=== PATIENT | female | born 1995 | race Caucasian/White ===

== ENCOUNTER 2019-10-04 10:49 | Emergency (ER) | payer BC, OTHER ==
--- NOTE | 2019-10-04 11:39 | UC ---
Throat Pain/Nasal Jeffrey HPI - HPI Summary HPI Summary: 24 yo female presents with sore throat. She was seen here on 09/29 for right ear crackling, sore throat, right sided swollen glands, and elevated temp of 99.9F. Dx'd with viral syndrome and advised supportive care. Pt is here today stating that her symptoms have no improved. He symptoms began around 4/5 and have been persistent since. - History of Current Complaint Stated Complaint: FEVER,HEADACHE Time Seen by Provider: 10/04/19 11:39 Hx Obtained From: Patient Hx Last Menstrual Period: 2 weeks ago Onset/Duration: Gradual Onset Severity: Moderate Pain Intensity: 5 Pain Scale Used: 0-10 Numeric - Allergies/Home Medications Allergies/Adverse Reactions: Allergies Allergy/AdvReac Type Severity Reaction Status Date / Time No Known Allergies Allergy Verified 07/07/15 12:03 Home Medications: Home Medications Physical Therapy 11/11/13 [Clinic] Norgestimate-Ethinyl Estradiol [Ortho-Cyclen 0.25-35 Mg-Mcg] 1 tab PO DAILY #3 courtney 02/16/14 [Clinic] PMH/Surg Hx/FS Hx/Imm Hx - Additional Past Medical History Additional PMH: None - Surgical History Surgical History: None - Family History Known Family History: Positive: None - Social History Lives: With Family Alcohol Use: None Substance Use Type: None Smoking Status (MU): Never Smoked Tobacco - Immunization History Vaccination Up to Date: Yes Review of Systems All Other Systems Reviewed And Are Negative: No Constitutional: Positive: Fever - subjective Skin: Positive: Negative Eyes: Positive: Negative ENT: Positive: Sore Throat Respiratory: Positive: Negative Cardiovascular: Positive: Negative Gastrointestinal: Positive: Negative Neurovascular: Positive: Negative Neurological/Mental Status: Positive: Headache Psychological: Positive: Negative Physical Exam - Summary Physical Exam Summary: GENERAL: NAD. WDWN. No pain distress. SKIN: No rashes, sores, lesions, or open wounds. HEENT: Head: AT/NC Eyes: EOM intact. Conjunctiva clear without inflammation or discharge. Ears: Hearing grossly normal. TMs intact, no bulging, erythema, or edema. Nose: Nasal mucosa pink and moist. NTTP maxillary and frontal sinus. Throat: Posterior oropharynx without exudates, erythema, or tonsillar enlargement. Uvula midline. NECK: Supple. Nontender. No lymphadenopathy. CHEST: CTAB. No r/r/w. No accessory muscle use. Breathing comfortably and in no distress. CV: RRR. Pulses intact. Cap refill <2seconds NEURO: Alert. PSYCH: Age appropriate behavior. Triage Information Reviewed: Yes Vital Signs Reviewed: Yes Discharge ED - Sign-Out/Discharge Documenting (check all that apply): Patient Departure All imaging exams completed and their final reports reviewed: No Studies - Discharge Plan Condition: Stable Disposition: HOME Referrals: No Primary Care Phys,NOPCP [Primary Care Provider] - - Billing Disposition and Condition Condition: STABLE Disposition: Home
[2019-10-04 12:38] VITALS: BP 108/65
--- NOTE | 2019-10-04 12:42 | UC ---
Throat Pain/Nasal Jeffrey HPI - HPI Summary HPI Summary: 24-year-old woman comes in with a chief complaint of fevers headache and feeling tired or about 8 days. Also having swollen lymph nodes in her neck primarily posteriorly. She's been sleeping a lot at night and then she'll sleep again during the day. Initially had a right ear pain but that's improved. Headache tends to be a little bit more pronounced on the left side of the head. Has generalized body aches. Does not have a stiff neck. She has back pain as part of her body aches. When we discussed further patient does not have midline neck or back pain. No rash. No urinary symptoms. Mild nausea no vomiting no diarrhea no abdominal pain. Has been taking Tylenol which does help with the headache and symptoms. Denies any cough chest congestion or shortness of breath. No known recent tick bites. Patient does report she has ticks in the [place] near [place] home. - History of Current Complaint Chief Complaint: UCGeneralIllness Stated Complaint: FEVER,HEADACHE Time Seen by Provider: 10/04/19 11:39 Hx Last Menstrual Period: 09/29/19 Pain Intensity: 8 - Allergies/Home Medications Allergies/Adverse Reactions: Allergies Allergy/AdvReac Type Severity Reaction Status Date / Time No Known Allergies Allergy Verified 10/04/19 11:59 Home Medications: Home Medications Acetaminophen [Mapap] 1,000 mg PO Q6HR PRN 10/04/19 [History Confirmed 10/04/19] Copper (Iud) [Paragard IUD] 1 unit INTRAUTERI ONCE 10/04/19 [History Confirmed 10/04/19] DOXYcycline CAP(*) [DOXYcycline 100MG CAP(*)] 100 mg PO BID #20 cap 10/04/19 [Rx ] PMH/Surg Hx/FS Hx/Imm Hx Previously Healthy: Yes - Surgical History Surgical History: Yes Surgery Procedure, Year, and Place: compartment syndrome surgery left leg. wisdom teeth - Family History Known Family History: Positive: Non-Contributory - Social History Alcohol Use: Daily Substance Use Type: None Smoking Status (MU): Never Smoked Tobacco - Immunization History Vaccination Up to Date: Yes Review of Systems All Other Systems Reviewed And Are Negative: Yes Constitutional: Positive: Fever, Fatigue, Other - see hpi Skin: Positive: Negative Eyes: Positive: Negative ENT: Positive: Ear Ache Respiratory: Positive: Negative Cardiovascular: Positive: Negative Gastrointestinal: Positive: Nausea Genitourinary: Positive: Negative Motor: Positive: Negative Neurovascular: Positive: Negative Musculoskeletal: Positive: Myalgia Neurological/Mental Status: Positive: Headache Psychological: Positive: Negative Is Patient Immunocompromised?: No Physical Exam Triage Information Reviewed: Yes Appearance: Well-Appearing, No Pain Distress, Well-Nourished Vital Signs: Initial Vital Signs Temp 98.1 F 10/04/19 12:37 Pulse 104 10/04/19 12:37 Resp 12 10/04/19 12:37 BP 108/65 10/04/19 12:37 Pulse Ox 97 10/04/19 12:37 Vital Signs Reviewed: Yes Eye Exam: Normal Eyes: Positive: Conjunctiva Clear ENT: Positive: Pharynx normal, TMs normal Neck: Positive: Supple, Other: - Positive right posterior lymphadenopathy Respiratory: Positive: Lungs clear, Normal breath sounds, No respiratory distress Cardiovascular: Positive: Tachycardia Musculoskeletal: Positive: Strength Intact, ROM Intact Neurological: Positive: Alert, Muscle Tone Normal Psychological: Positive: Age Appropriate Behavior Skin Exam: Normal Throat Pain/Nasal Course/Dx - Course Course Of Treatment: Patient's symptoms been going on for about 8 days. With her fatigue, having a headache and low-grade fevers and lymphadenopathy mononucleosis is likely. Discussed viral versus bacterial infections and the role of antibiotics at this will treat with an antibiotic as are getting near the 10 days and the possibility of sinusitis does exist. Patient does have a headache and body aches does not have midline neck or back pain and her neck is supple and she overall looks well making meningitis unlikely. We did discuss the signs and symptoms of meningitis. No known tick bites. Given that the patient does not complain of cough or shortness of breath it makes Covid unlikely however due to the duration of the symptoms we will go ahead and test. Patient will be and self-isolation and follow-up with [facility]. Covid, Monospot, CBC, CMP and Lyme screen are pending. Patient will continue symptomatic treatment with Tylenol and [id number] medications if helpful. Patient to get reevaluated not improved or if worsening. - Differential Dx/Diagnosis Provider Diagnosis: Fever, Fatigue, Headache Discharge ED - Sign-Out/Discharge Documenting (check all that apply): Patient Departure All imaging exams completed and their final reports reviewed: No Studies - Discharge Plan Condition: Stable Disposition: HOME Prescriptions: DOXYcycline CAP(*) [DOXYcycline 100MG CAP(*)] 100 mg PO BID #20 cap Patient Education Materials: Fever in Adults (ED), Acute Headache (ED), Fatigue (ED) Forms: COVID-19 Tested & Isolation Referrals: [facility] [Provider Group] [facility] [place] [facility] [place]Outside] Additional Instructions: PLACE YOURSELF IN HOME ISOLATION. THE [facility] DEPARTMENT WILL CONTACT YOU. CONTACT THEM TOMORROW IF YOU HAVE NOT HEARD FROM THEM. Blood tests for mononucleosis (Monospot) and CBC and CMP results are pending. FOLLOW UP WITH YOUR DOCTOR IF NOT COMPLETELY IMPROVED. GO TO THE EMERGENCY DEPARTMENT IF NOT IMPROVED OR WORSE OR ANY QUESTIONS OR CONCERNS. - Billing Disposition and Condition Condition: STABLE Disposition: Home
[2019-10-04 18:31] LABS: Albumin 3.8 g/dL (3.2-5.2); Calcium 8.7 mg/dL (8.6-10.3); Potassium 4.1 mmol/L (3.5-5.0); Total Bilirubin 0.6 mg/dL (0.2-1.0)
[2019-10-04 18:37] LABS: Albumin/Globulin Ratio 1.2 (1-3); BUN/Creatinine Ratio 9.2 (8-20); EGFR African American 137.9 (>60); Globulin 3.1 g/dL (2-4); Total Protein 6.9 g/dL (6.4-8.9)
[2019-10-04 18:56] LABS: Hematocrit 37 % (35-47); Hemoglobin 12.7 g/dL (12.0-16.0); Mean Corpuscular HGB Conc 34 g/dL (31-36); Mean Corpuscular Hemoglobin 29 pg (27-31); Mean Corpuscular Volume 84 fL (80-97); Red Cell Distribution Width 20 % (10-15); White Blood Count 3.6 10^3/uL (3.5-10.8)
[2019-10-04 18:58] LABS: Microcytosis 1+
[2019-10-04 18:59] LABS: ABS Monocytes 0.2 10^3/ul (0-0.8); ABS Neutrophils 1.3 10^3/ul (1.5-7.7); Eosinophil % 0.7 %; Lymphocyte % 56.2 %; Nucleated Red Blood Cells % 0.2
--- NOTE | 2019-10-05 08:21 | UC ---
- Progress Note Progress Note: Patient's labs show elevated liver function tests. Recommend she have labs repeated to make sure her liver function tests are not worsening. Could be in setting of a viral illness such as EBV (mono) or CMV and would recommend checking these titers as well. If she is feeling better then would recommend repeat labs in the next week which can be set up by her PCP. If she is still not feeling well then recommend she return to urgent care for repeat evaluation or follow up with her PCP today. Still waiting on COVID testing results. If planning on coming to urgent care or PCP please let either know in advance when you are planning to come and let them know you are awaiting your COVID results Course/Dx - Diagnoses Provider Diagnoses: Fever, Fatigue, Headache Discharge ED - Sign-Out/Discharge Documenting (check all that apply): Post-Discharge Follow Up All imaging exams completed and their final reports reviewed: No Studies - Discharge Plan Condition: Stable Disposition: HOME Prescriptions: DOXYcycline CAP(*) [DOXYcycline 100MG CAP(*)] 100 mg PO BID #20 cap Patient Education Materials: Fever in Adults (ED), Acute Headache (ED), Fatigue (ED) Forms: COVID-19 Tested & Isolation Referrals: [facility] [Provider Group] [facility] [place] [facility] [Outside] Additional Instructions: PLACE YOURSELF IN HOME ISOLATION. THE [facility] DEPARTMENT WILL CONTACT YOU. CONTACT THEM TOMORROW IF YOU HAVE NOT HEARD FROM THEM. Blood tests for mononucleosis (Monospot) and CBC and CMP results are pending. FOLLOW UP WITH YOUR DOCTOR IF NOT COMPLETELY IMPROVED. GO TO THE EMERGENCY DEPARTMENT IF NOT IMPROVED OR WORSE OR ANY QUESTIONS OR CONCERNS. - Billing Disposition and Condition Condition: STABLE Disposition: Home
[2019-10-06 12:33] LABS: EBV Capsid Ag IgG Ab Positive (Negative); EBV Capsid Ag IgM Ab Positive (Negative); Epstein-Barr Nuclear Antigen Negative (Negative)
--- NOTE | 2019-10-06 13:46 | UC ---
- Progress Note Progress Note: patient notified re EB titers advised of need to f/u re LFTs DEVIN Course/Dx - Diagnoses Provider Diagnoses: Fever, Fatigue, Headache Discharge ED - Sign-Out/Discharge Documenting (check all that apply): Post-Discharge Follow Up All imaging exams completed and their final reports reviewed: No Studies - Discharge Plan Condition: Stable Disposition: HOME Prescriptions: DOXYcycline CAP(*) [DOXYcycline 100MG CAP(*)] 100 mg PO BID #20 cap Patient Education Materials: Fever in Adults (ED), Acute Headache (ED), Fatigue (ED) Forms: COVID-19 Tested & Isolation Referrals: [facility] [Provider Group] [facility] [place] [facility] [Outside] Additional Instructions: PLACE YOURSELF IN HOME ISOLATION. THE [facility] WILL CONTACT YOU. CONTACT THEM TOMORROW IF YOU HAVE NOT HEARD FROM THEM. Blood tests for mononucleosis (Monospot) and CBC and CMP results are pending. FOLLOW UP WITH YOUR DOCTOR IF NOT COMPLETELY IMPROVED. GO TO THE EMERGENCY DEPARTMENT IF NOT IMPROVED OR WORSE OR ANY QUESTIONS OR CONCERNS. - Billing Disposition and Condition Condition: STABLE Disposition: Home
== END 2019-10-04 13:11 | disposition home or self-care (01) ==
LOC: UCEAST 10:49
DX: R50.9 Fever, unspecified (principal); R53.83 Other fatigue; R51 Headache; M79.10 Myalgia, unspecified site; Z20.828 Contact with and (suspected) exposure to other viral communicable diseases
CPT/HCPCS: 36415; 80053; 85025; 86308; 86618; 86664; 86665; 87635; 99213; G0463; G2023

== ENCOUNTER 2019-10-14 13:42 | Emergency (ER) | payer BC ==
[2019-10-14 14:04] VITALS: BP 102/73
--- NOTE | 2019-10-14 14:35 | UC ---
Throat Pain/Nasal Jeffrey HPI - HPI Summary HPI Summary: 24-year-old woman comes in with a chief complaint of sore throat since yesterday. It hurts to swallow. Patient's had a recent diagnosis of mononucleosis. She has a negative covid test In the last week. She has no cough no shortness of breath no fevers. She still feels very fatigued which she has felt ever since she started with a mononucleosis. Throat hurts to swallow she does feel thirsty all the time her urine is dark. - History of Current Complaint Chief Complaint: UCRespiratory Stated Complaint: THROAT PAIN Time Seen by Provider: 10/14/19 13:47 Hx Last Menstrual Period: three weeks ago Pain Intensity: 6 - Allergies/Home Medications Allergies/Adverse Reactions: Allergies Allergy/AdvReac Type Severity Reaction Status Date / Time No Known Allergies Allergy Verified 10/14/19 13:56 Home Medications: Home Medications Copper (Iud) [Paragard IUD] 1 unit INTRAUTERI ONCE 10/04/19 [History Confirmed 10/14/19] Cephalexin CAP* [Keflex CAP*] 500 mg PO TID #30 cap 10/14/19 [Rx] methylPREDNISolone [Medrol Dosepak 4 MG*] 0 mg PO .SEE ASTRID INSTRUCTION #1 astrid [Rx] PMH/Surg Hx/FS Hx/Imm Hx Previously Healthy: Yes - mono - Surgical History Surgical History: Yes Surgery Procedure, Year, and Place: compartment syndrome surgery left leg. wisdom teeth - Family History Known Family History: Positive: None, Non-Contributory - Social History Alcohol Use: Daily Substance Use Type: None Smoking Status (MU): Never Smoked Tobacco - Immunization History Vaccination Up to Date: Yes Review of Systems All Other Systems Reviewed And Are Negative: Yes Constitutional: Positive: Fatigue, Other - see hpi Skin: Positive: Negative Eyes: Positive: Negative ENT: Positive: Sore Throat Respiratory: Positive: Negative. Negative: Shortness Of Breath, Cough Cardiovascular: Positive: Negative Motor: Positive: Negative Neurovascular: Positive: Negative Musculoskeletal: Positive: Negative Neurological/Mental Status: Positive: Negative Psychological: Positive: Negative Is Patient Immunocompromised?: No Physical Exam Triage Information Reviewed: Yes Appearance: No Pain Distress, Well-Nourished, Ill-Appearing - mild Vital Signs: Initial Vital Signs Temp 98.4 F 10/14/19 13:53 Pulse 115 10/14/19 13:53 Resp 18 10/14/19 13:53 BP 102/73 10/14/19 13:53 Pulse Ox 98 10/14/19 13:53 Vital Signs Reviewed: Yes Eye Exam: Normal Eyes: Positive: Conjunctiva Clear ENT: Positive: Other - Tonsils bilaterally are 2+ symmetric and erythematous. Uvula is midline. Voice is normal. No evidence of a peritonsillar abscess at this time. Neck: Positive: Supple Respiratory: Positive: No respiratory distress Musculoskeletal: Positive: Strength Intact, ROM Intact Neurological: Positive: Alert, Muscle Tone Normal Psychological: Positive: Age Appropriate Behavior Skin Exam: Normal Throat Pain/Nasal Course/Dx - Course Course Of Treatment: Strep was negative here in clinic. Patient does have enlarged tonsils in the setting of mononucleosis. We'll treat with a Medrol Dosepak to help decrease swelling. At this time the patient has no symptoms of Covid. I prescribed an antibiotic the patient is to take if her throat is not improving. Patient reevaluated if worse or any questions or concerns. - Differential Dx/Diagnosis Provider Diagnosis: Tonsillitis, Mononucleosis Discharge ED - Sign-Out/Discharge Documenting (check all that apply): Patient Departure All imaging exams completed and their final reports reviewed: No Studies - Discharge Plan Condition: Stable Disposition: HOME Prescriptions: Cephalexin CAP* [Keflex CAP*] 500 mg PO TID #30 cap methylPREDNISolone [Medrol Dosepak 4 MG*] 0 mg PO .SEE ASTRID INSTRUCTION #1 astrid Patient Education Materials: Mononucleosis (ED), Tonsillitis (ED) Referrals: [facility] [Provider Group] [facility] [place] [facility] [Outside] Additional Instructions: FOLLOW UP WITH YOUR DOCTOR IF NOT COMPLETELY IMPROVED. GET REEVALUATED IF NOT IMPROVED OR WORSE OR ANY QUESTIONS OR CONCERNS. - Billing Disposition and Condition Condition: STABLE Disposition: Home
== END 2019-10-14 14:40 | disposition home or self-care (01) ==
LOC: UCEAST 13:42
DX: J03.90 Acute tonsillitis, unspecified (principal); B27.99 Infectious mononucleosis, unspecified with other complication
CPT/HCPCS: 87651; 99212; G0463